=== PATIENT | female | born 1965 | race Caucasian/White ===

== ENCOUNTER → 2018-07-18 10:39 | Outpatient (CLI) | payer BC, SELFPAY ==
--- NOTE | 2018-07-18 10:46 | XR_ITS ---
XR hip LT 2-3V w/pelvis HISTORY: ITS.REASON: OSTEOARTHRITIS OF BOTH HIPS ORDERING PHYSICIAN: GERRY Pugh PATIENT AGE: 52 years COMPARISON: 11/05/2012 FINDINGS: There are severe osteoarthritic changes of the left hip with loss of joint space and prominent subarticular cystic changes of the femoral head along with osteophyte formation of the femoral head and neck. 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 No fracture or dislocation. IMPRESSION: Worsening severe osteoarthritis of the left hip with acetabular protrusio and prominent subarticular cystic changes and osteophyte formation
--- NOTE | 2018-07-18 10:46 | XR_ITS ---
XR hip RT 2-3V w/pelvis HISTORY: ITS.REASON: OSTEOARTHRITIS OF BOTH HIPS ORDERING PHYSICIAN: GERRY Pugh PATIENT AGE: 52 years COMPARISON: 11/05/2012 FINDINGS: There is severe osteoarthritis of the right hip with mild acetabular protrusio and prominent subcortical cystic changes of the femoral head. Prominent osteophytes are present along the femoral head as well. No fracture or dislocation. IMPRESSION: Severe osteoarthritis of the right hip with subcortical cystic change and osteophyte formation with mild acetabular protrusio. These findings have slightly worsened compared to the previous exam
== END ==
PROVIDERS: PCP Family Medicine; Visit Provider Physician Assistant
DX: M16.0 Bilateral primary osteoarthritis of hip (principal)
CPT/HCPCS: 73502

== ENCOUNTER → 2018-07-19 08:22 | Outpatient (CLI) | payer BC, SELFPAY ==
[2018-07-19 10:19] LABS: Alanine Aminotransferase 21 U/L (12-78); Albumin Level 3.3 gm/dL (3.4-5.0); Alkaline Phosphatase 82 U/L (46-116); Anion Gap 12.5 mEq/L (5-15); Aspartate Amino Transferase 14 U/L (15-37); Bilirubin,Total 0.4 mg/dL (0.2-1.0); Blood Urea Nitrogen 16 mg/dL (7-18); Calcium 8.6 mg/dL (8.5-10.1); Carbon Dioxide 27 mmol/L (21.0-32.0); Chloride 105 mmol/L (98-107); Chol/HDL Ratio 4.1 (1-3.5); Cholesterol 183 mg/dL (140-200); Creatinine,Serum 0.64 mg/dL (0.55-1.02); Estimated Glomerular Filt Rate 98 ml/min (>60); GFR (African American) 118 ML/MIN (>60); Globulin 3.3 gm/dl (1.3-3.2); Glucose 90 mg/dL (74-106); HDL Cholesterol 45 mg/dL (29-89); LDL Cholesterol 125 mg/dL (0-130); Potassium 4.5 mmoL/L (3.5-5.1); Sodium 140 mmol/L (136-145); Total Protein,Serum 6.6 gm/dL (6.4-8.2); Triglycerides 64 mg/dL (30-200); VLDL Cholesterol 13 mg/dL (0-40)
[2018-07-20 12:59] LABS: Vitamin B12 >2000 pg/mL (232-1245)
== END ==
PROVIDERS: Visit Provider Physician Assistant
DX: M16.0 Bilateral primary osteoarthritis of hip (principal); E53.8 Deficiency of other specified B group vitamins; E55.9 Vitamin D deficiency, unspecified; Z13.29 Encounter for screening for other suspected endocrine disorder; Z13.220 Encounter for screening for lipoid disorders
CPT/HCPCS: 36415; 80053; 80061; 82607; 82652; 84443

== ENCOUNTER → 2018-09-05 06:28 | Outpatient (CLI) | payer BC, SELFPAY ==
--- NOTE | 2018-09-05 06:34 | CA_ITS ---
PROCEDURE: 2-D M-mode and color Doppler study INDICATIONS FOR THE TEST: Chest pain X COPD Heart Murmur Tobacco SmokingX Palpitations Fatigue Syncope Edema HypertensionXDiabetes Mellitus Rheumatic Fever SOBXDOE Obesity HyperlipidemiaX Family History HD Additional History PRE OP HIP REPLACEMENT PATIENT INFORMATION HEIGHT: 62 WEIGHT:155 GENDER: Female B/P:144/86 2-D/M-MODE INTERPRETATION: 2-D MEASUREMENTS OBSERVED VALUES IN CMS Right Ventricular Dimension (RVDd) 2.3 Interventricular Septum (Thickness)(IVsd) .9 Left Ventricular Internal Dimensions(LVIDd) 4.8 Left Ventricular Posterior Wall (Thickness)(LVPWd) 1.1 Aortic Root 2.8 Aortic Cusp Separation 1.5 Left Atrial Dimensions (LAD) 2.9 2D 1. Left atrium is normal size, left ventricle is normal size, there is no concentric left ventricular hypertrophy, visually estimated ejection fraction 55% with no regional wall motion abnormality. 2. The right atrium and right ventricle are normal size and contractility. 3. The aortic valve, mitral and tricuspid valvular grossly normal. 4. The pulmonic valve is poorly visualized. 5. No significant pericardial effusion noted. DOPPLER INTERROGATION: Doppler interrogation of the aortic, mitral and tricuspid valvular presence of mild mitral and tricuspid regurgitation, tricuspid regurgitation jet velocity is inadequate for calculation of the right ventricular systolic pressure, diastolic parameters are within normal range. CONCLUSION: 1. Normal left ventricular size, preserved left ventricular systolic function, visually estimated ejection fraction 55% with no regional wall motion abnormality, diastolic parameters are within normal range. 2. Mild mitral and tricuspid regurgitation 3. No significant pericardial effusion noted.
--- NOTE | 2018-09-05 07:11 | NM_ITS ---
CARDIOLITE SPECT MYOCARDIAL PERFUSION LEXISCAN, REST AND STRESS: History: Tobacco use, family history, chest pain, palpitations and fatigue Procedure: Patient received a 0.4 mg of intravenous Lexiscan, resting heart rate of 55% resting blood pressure 161/87, with Lexiscan maximum heart rate achieved was 100 bpm which is less than 85% of the maximum] heart rate and a blood pressure was 145/90. With Lexiscan patient complained shortness of breath. Electrocardiogram: Resting electrocardiogram showed sinus bradycardia, with Lexiscan less than 1.[address] segment depression noted from the baseline EKG. The EKG portion of the Lexiscan Myoview is nondiagnostic. Cardiac stress and resting SPECT images: Cardiac stress and resting SPECT images were obtained using technetium 99 Myoview 32.2 mCi at stress and 9.8 mCi at rest. Gated SPECT further analysis of segmental wall motion and calculation of the ejection fraction also done. Cardiac stress and resting SPECT images show reversible ischemia involving the anteroapical apex. Computer derived ejection fraction 61% with no regional wall motion abnormality, right ventricle is normal size and contractility. Conclusion: 1. The EKG portion of the Lexiscan Myoview is nondiagnostic. 2. Scintigraphic evidence of reversible ischemia involving the anteroapical and apical wall. Computer derived ejection fraction is 61% with no regional wall motion abnormality, right ventricle is normal size and contractility. 3. Abnormal Lexiscan Myoview study.
--- NOTE | 2018-09-05 07:11 | CT_ITS ---
CT chest wo con HISTORY: Current smoker, ITS.REASON: x ORDERING PHYSICIAN: Praneeth Otto MD PATIENT AGE: 52 years COMPARISON: None Technique: Axial images obtained without contrast. Sagittal, and coronal reformatted images are also generated and reviewed. All CT scans at the facility use one or more dose reduction, viz: automated exposure control, ma/kV adjustment per patient size (including targeted exams where dose is matched to indication, i.e. head), or iterative reconstruction technique. FINDINGS: No mediastinal or hilar mass or adenopathy. There are a few small mediastinal lymph nodes some of which are calcified. There are coronary artery calcifications. Normal heart size. No evidence of pericardial effusion. Calcified granuloma is present in the right apex. There is mild hyperinflation with attenuation of the peripheral pulmonary vessels consistent with COPD. There is a noncalcified 4 mm nodule in the right lower lobe posteriorly series 3 image 45. There is a 3 mm ill-defined nodular opacity in the left upper lobe inferiorly series 3 image #53. There is some mild bronchial thickening. No central obstructing lesions. No effusions or infiltrates. No acute bony findings. Upper abdominal images are unremarkable. IMPRESSION: 1. There are at least 2 noncalcified pulmonary nodules which are 3 to 4 mm. 12 month follow-up recommended. 2. COPD. 3. Old granulomatous disease. 4. Coronary artery calcification
--- NOTE | 2018-09-05 08:43 | HMH.ITSHM ---
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 [] meloxicam asa
== END ==
PROVIDERS: PCP Family Medicine; Visit Provider Internal Medicine Cardiovascular Disease
DX: Z01.818 Encounter for other preprocedural examination (principal); R06.02 Shortness of breath; R07.9 Chest pain, unspecified; I10 Essential (primary) hypertension; E78.5 Hyperlipidemia, unspecified; I65.29 Occlusion and stenosis of unspecified carotid artery; Z72.0 Tobacco use; Z82.49 Family history of ischemic heart disease and other diseases of the circulatory system
CPT/HCPCS: 71250; 78452; 93017; 93306; A9502; J2785

== ENCOUNTER → 2019-02-26 07:45 | Outpatient (CLI) | payer BC, SELFPAY ==
[2019-02-26 08:54] LABS: Alanine Aminotransferase 23 U/L (12-78); Albumin Level 3.4 gm/dL (3.4-5.0); Alkaline Phosphatase 108 U/L (46-116); Aspartate Amino Transferase 14 U/L (15-37); Bilirubin,Direct 0.1 mg/dL (0.0-0.2); Bilirubin,Indirect 0.5 mg/dL (0.0-0.9); Bilirubin,Total 0.6 mg/dL (0.2-1.0); Chol/HDL Ratio 2.5 (1-3.5); Cholesterol 115 mg/dL (140-200); HDL Cholesterol 46 mg/dL (29-89); LDL Cholesterol 59 mg/dL (0-130); Total Protein,Serum 6.8 gm/dL (6.4-8.2); Triglycerides 51 mg/dL (30-200); VLDL Cholesterol 10 mg/dL (0-40)
== END ==
PROVIDERS: Visit Provider Internal Medicine Cardiovascular Disease
DX: E78.5 Hyperlipidemia, unspecified (principal); I10 Essential (primary) hypertension; I25.10 Atherosclerotic heart disease of native coronary artery without angina pectoris; I65.29 Occlusion and stenosis of unspecified carotid artery; R91.8 Other nonspecific abnormal finding of lung field; Z72.0 Tobacco use
CPT/HCPCS: 36415; 80061; 80076

== ENCOUNTER 2019-08-01 10:00 | Outpatient (RCR) | payer BC, SELFPAY | END 2019-08-01 10:05 | disposition home or self-care (01) | LOC: PT 10:00 | PROVIDERS: PCP Family Medicine; Visit Provider Orthopaedic Surgery | DX: Z96.642 Presence of left artificial hip joint (principal); M16.12 Unilateral primary osteoarthritis, left hip | CPT/HCPCS: 97010; 97014; 97110; 97116; 97163; G0283 ==

== ENCOUNTER 2020-02-25 13:00 | Outpatient (RCR) | payer BC, SELFPAY | END 2020-02-25 13:05 | disposition home or self-care (01) | LOC: PT 13:00 | PROVIDERS: PCP Family Medicine; Visit Provider Orthopaedic Surgery | DX: M25.551 Pain in right hip; Z96.641 Presence of right artificial hip joint | CPT/HCPCS: 97110; 97163 ==

== ENCOUNTER → 2020-08-24 09:17 | Outpatient (CLI) | payer BC, SELFPAY ==
[2020-08-24 10:34] LABS: Alanine Aminotransferase 18 U/L (12-78); Alkaline Phosphatase 110 U/L (38-126); Aspartate Amino Transferase 25 U/L (14-36); Bilirubin,Direct 0.1 mg/dl (0.0-0.4); Bilirubin,Indirect 0.5 mg/dL (0.0-0.9); Bilirubin,Total 0.6 mg/dl (0.2-1.3); Bilirubin,Unconjugated 0.5 mg/dL (0.0-1.1); Cholesterol 114 mg/dl (140-200); HDL Cholesterol 56 mg/dl (40-60); Total Protein,Serum 7.2 g/dl (6.3-8.2); Triglycerides 73 mg/dl (30-150); VLDL Cholesterol 15 mg/dL (0-40)
== END ==
PROVIDERS: Visit Provider Urology
DX: E78.5 Hyperlipidemia, unspecified (principal); I10 Essential (primary) hypertension; I25.10 Atherosclerotic heart disease of native coronary artery without angina pectoris; I65.29 Occlusion and stenosis of unspecified carotid artery
CPT/HCPCS: 36415; 80061; 80076

== ENCOUNTER → 2020-08-27 09:42 | Outpatient (CLI) | payer BC, SELFPAY ==
--- NOTE | 2020-08-27 09:46 | CA_ITS ---
APPROVED REPORT Voltage Regulator Assembler: UZAIR Laterality: Bilateral Indications: ariel/dizziness Risk Factors Hypertension: History smoking quit 2 years ago. Doppler Spectral Velocity Analysis ECA (R) 90.80/24.00 cm/s ECA (L) 96.20/20.30 cm/s dICA (R) 97.30/37.40 cm/s dICA (L) 123.00/47.00 cm/s Ryan (R) 121.90/48.10 cm/s Ryan (L) 121.90/39.60 cm/s pICA (R) 113.30/46.00 cm/s pICA (L) 120.80/29.90 cm/s dCCA (R) 93.40/35.10 cm/s dCCA (L) 101.60/36.40 cm/s pCCA (R) 123.40/30.80 cm/s pCCA (L) 116.60/35.30 cm/s Vert (R) 65.20/20.30 cm/s Vert (L) 62.00/21.40 cm/s ICA/CCA 0.77 ICA/CCA 1.21 Findings Duplex evaluation demonstrates stenosis of the right proximal internal carotid artery in the range of 20-49% with PSV <140 cm/sec, EDV <100 cm/sec, and IC/CC Ratio <4.0, no change from study 12/2016. Duplex evaluation demonstrates stenosis of the left proximal internal carotid artery in the range of 20-49% with PSV <140 cm/sec, EDV <100 cm/sec, and IC/CC Ratio <4.0, no change from study 12/2016. Conclusion Duplex evaluation demonstrates stenosis of the right proximal internal carotid artery in the range of 20-49% with PSV <140 cm/sec, EDV <100 cm/sec, and IC/CC Ratio <4.0, no change from study 12/2016. Duplex evaluation demonstrates stenosis of the left proximal internal carotid artery in the range of 20-49% with PSV <140 cm/sec, EDV <100 cm/sec, and IC/CC Ratio <4.0, no change from study 12/2016. Electronically signed by : Darryl Price MD 08/27/2020 16:16:15
== END ==
PROVIDERS: PCP Family Medicine; Visit Provider Urology
DX: R42 Dizziness and giddiness (principal); I25.10 Atherosclerotic heart disease of native coronary artery without angina pectoris; I65.23 Occlusion and stenosis of bilateral carotid arteries; E78.5 Hyperlipidemia, unspecified; I10 Essential (primary) hypertension
CPT/HCPCS: 93880

== ENCOUNTER → 2021-04-25 11:21 | Outpatient (CLI) | payer BC, SELFPAY ==
--- NOTE | 2021-04-25 11:27 | XR_ITS ---
PROCEDURE: XR CHEST PORTABLE CLINICAL HISTORY: COVID TESTING, COMPARISON: CR CXR CHEST(2 VIEWS-NOT PORTABLE) from 08/12/[address] chest wo con from 09/05/2018 FINDINGS: The cardiomediastinal silhouette and pulmonary vascularity are within normal limits. The lungs are clear without infiltrates, suspicious nodules, or pleural effusions. No acute bony abnormalities. IMPRESSION: No acute findings. Dictated by: Darryl Price MD 04/25/2021 12:34 Darryl Price MD in [place] 04/25/2021 12:34
[2021-04-25 11:47] LABS: Basophils # 0.1 K/mm3 (0-0.2); Basophils % 1.4 % (0.1-2.0); Eosinophils # 0.1 K/mm3 (0.0-0.4); Eosinophils % 1.1 % (0.1-12.0); Hemoglobin 15.1 g/dL (12.2-16.2); Lymphocytes % 24.3 % (10-50); Mean Corpuscular HGB Conc 32.8 g/dL (31.8-35.4); Mean Corpuscular Hemoglobin 29.8 pg (27.0-31.2); Mean Corpuscular Volume 90.9 fl (81-99); Mean Platelet Volume 8.4 fl (7.4-10.4); Monocytes # 0.3 K/mm3 (0.1-1.0); Monocytes % 5.8 % (1.7-9.3); Neutrophils # 2.9 K/mm3 (1.8-7.8); Neutrophils % 67.4 % (37.0-80.0); Platelet Count 200 K/mm3 (142-424); Red Blood Count 5.06 M/mm3 (4.20-5.40); Red Cell Distribution Width 14.4 % (11.5-17.5); White Blood Count 4.3 K/mm3 (4.8-10.8)
== END ==
PROVIDERS: PCP Family Medicine; Visit Provider Family Medicine
DX: J40 Bronchitis, not specified as acute or chronic (principal)
CPT/HCPCS: 36415; 71045; 85025

== ENCOUNTER → 2021-04-28 11:47 | Outpatient (CLI) | payer BC, SELFPAY ==
[2021-04-28 12:26] LABS: Adenovirus,PCR Not Detected (NotDetected); Bordetella Pertussis Not Detected (NotDetected); Chlamydophila Pneumoniae, PCR Not Detected (NotDetected); Coronavirus 229E Not Detected (NotDetected); Coronavirus NL63 Not Detected (NotDetected); Coronavirus OC43 Not Detected (NotDetected); Coronovirus HKU1,PCR Not Detected (NotDetected); Human Metapneumovirus Not Detected (NotDetected); Influenza A, PCR Not Detected (NotDetected); Influenza AH1, 2009 Not Detected (NotDetected); Influenza AH1, PCR Not Detected (NotDetected); Influenza AH3,PCR Not Detected (NotDetected); Influenza B, PCR Not Detected (NotDetected); Mycoplasma Pneumoniae, PCR Not Detected (NotDetected); Parainfluenza 1, PCR Not Detected (NotDetected); Parainfluenza 2, PCR Not Detected (NotDetected); Parainfluenza 3, PCR Not Detected (NotDetected); Parainfluenza 4, PCR Not Detected (NotDetected); Respiratory Syncytial Virus Not Detected (NotDetected); Rhinovirus/Enterovirus Not Detected (NotDetected)
[2021-04-28 14:25] LABS: Strep Scrn Group A (Rapid) Negative (Negative)
[2021-04-28 15:01] LABS: Coronavirus 19, PCR Detected (NotDetected)
== END ==
PROVIDERS: PCP Family Medicine; Visit Provider Physician Assistant
DX: Z20.822 Contact with and (suspected) exposure to COVID-19 (principal); U07.1 COVID-19
CPT/HCPCS: 87430; 87581; 87632; 87798; C9803; U0003; U0005

== ENCOUNTER 2021-04-30 07:59 | Outpatient (CLI) | payer BC, SELFPAY ==
[2021-04-30] VITALS (7 sets, daily range): BP systolic 128–157; BP diastolic 77–98; PULSE 73–77; RESP 18–20; TEMP 36.8–36.9; O2SAT 97–100
== END 2021-04-30 10:02 | disposition home or self-care (01) ==
PROVIDERS: PCP Family Medicine; Visit Provider Physician Assistant
DX: U07.1 COVID-19 (principal); Z23 Encounter for immunization
CPT/HCPCS: 96365

== ENCOUNTER → 2021-09-23 12:36 | Outpatient (CLI) | payer BC, SELFPAY ==
--- NOTE | 2021-09-23 12:37 | CA_ITS ---
FINAL REPORT TECHNIQUE: Color Doppler, duplex Doppler and schneider scale sonography of the bilateral neck arterial vasculature was performed. Velocities were measured in the carotid arteries. Stenosis evaluation based on the validated velocity criteria. CLINICAL HISTORY: ZONIA,HTN,EX SMOKER FINDINGS: The peak systolic velocity of the right common carotid artery is 92 cm/s. The peak systolic velocity of the right internal carotid artery is 103 cm/s and end diastolic velocity 47 cm/s. The ICA/CCA ratio is 1.2. A mild amount of plaque is present. The right external carotid artery is patent. The right vertebral artery is patent with antegrade flow. The peak systolic velocity of the left common carotid artery is 102 cm/s. The peak systolic velocity of the left internal carotid artery is 103 cm/s and end diastolic velocity 34 cm/s. The ICA/CCA ratio is 1.32. A mild amount of plaque is present. The left external carotid artery is patent.The left vertebral artery is patent with antegrade flow. IMPRESSION: Less than 50% bilateral carotid stenosis. Bilateral patent vertebral arteries with antegrade flow. Reviewed, Interpreted and Dictated by Epifanio Eubanks III, MD Transcribed by Nanci Paul Authenticated by Epifanio Eubanks III, MD on 09/23/2021 01:46:[address] [facility]
== END ==
PROVIDERS: PCP Family Medicine; Visit Provider Nurse Practitioner Family
DX: I65.23 Occlusion and stenosis of bilateral carotid arteries (principal); I25.10 Atherosclerotic heart disease of native coronary artery without angina pectoris; I10 Essential (primary) hypertension; E78.5 Hyperlipidemia, unspecified
CPT/HCPCS: 93880

== ENCOUNTER → 2022-09-16 08:13 | Outpatient (CLI) | payer BC, SELFPAY ==
[2022-09-16 09:26] LABS: Chloride 105 mmol/L (98-107); Potassium 4.3 mmoL/L (3.5-5.1); Sodium 140 mmol/L (136-145)
[2022-09-16 09:27] LABS: Alanine Aminotransferase 29 U/L (12-78); Alkaline Phosphatase 117 U/L (38-126); Aspartate Amino Transferase 31 U/L (14-36); Bilirubin,Indirect 0.5 mg/dL (0.0-0.9); Bilirubin,Total 0.5 mg/dl (0.2-1.3); Bilirubin,Unconjugated 0.5 mg/dL (0.0-1.1)
[2022-09-16 09:28] LABS: Chol/HDL Ratio 2.4 (1-3.5); Cholesterol 109 mg/dl (140-200); HDL Cholesterol 46 mg/dl (40-60); Triglycerides 63 mg/dl (30-150); VLDL Cholesterol 13 mg/dL (0-40)
[2022-09-16 09:28] LABS: Blood Urea Nitrogen 17 mg/dl (7-17); Estimated Glomerular Filt Rate 87 ml/min (>60); GFR (African American) 105 ML/MIN (>60)
[2022-09-16 09:29] LABS: Alanine Aminotransferase 28 U/L (12-78); Albumin/Globulin Ratio 1.3 (1.1-1.8); Alkaline Phosphatase 122 U/L (38-126); Anion Gap 9.3 mEq/L (5-15); Aspartate Amino Transferase 31 U/L (14-36); Bilirubin,Total 0.5 mg/dl (0.2-1.3); Calcium 8.9 mg/dl (8.4-10.2); Carbon Dioxide 30 mmol/L (22.0-30.0); Glucose 89 mg/dl (74-100)
[2022-09-16 09:39] LABS: Direct LDL Cholesterol 49.76 mg/dL (100-129)
[2022-09-16 14:20] LABS: 25-OH Vitamin D, Total 52.3 ng/mL (30-100)
[2022-09-16 15:33] LABS: Vitamin B12 883 pg/mL (239-931)
== END ==
PROVIDERS: PCP Physician Assistant; Visit Provider Internal Medicine Cardiovascular Disease
DX: I25.118 Atherosclerotic heart disease of native coronary artery with other forms of angina pectoris (principal); R42 Dizziness and giddiness; I10 Essential (primary) hypertension; E78.2 Mixed hyperlipidemia; I65.23 Occlusion and stenosis of bilateral carotid arteries; E66.9 Obesity, unspecified; Z68.35 Body mass index [BMI] 35.0-35.9, adult
CPT/HCPCS: 36415; 80053; 80061; 80076; 82306; 82607

== ENCOUNTER → 2022-10-06 14:12 | Outpatient (CLI) | payer BC, SELFPAY ==
--- NOTE | 2022-10-06 14:21 | MM_ITS ---
PROCEDURE INFORMATION: Exam: Bilateral Screening 3D Mammography Exam date and time: 10/06/2022 2:40 PM Age: 56 years old Clinical indication: Screening mammogram TECHNIQUE: Imaging protocol: Bilateral Screening tomosynthesis and 2D mammography including computer-aided detection (CAD) when performed. COMPARISON: No relevant prior studies available. FINDINGS: MAMMOGRAPHY: Breast composition: There are scattered areas of fibroglandular density. Mass: 0.3 cm mass within the lower outer right middle 1/3 should be further assessed with ultrasound. Architectural distortion: No new or suspicious architectural distortion. Calcifications: No new or suspicious calcifications are present Asymmetric density: No new or suspicious asymmetric density is present Skin thickening: None. Axillary adenopathy: None. IMPRESSION: 0.3 cm mass within the lower outer right middle 1/3 should be further assessed with ultrasound. ASSESSMENT: BI-RADS category 0: Incomplete-need additional imaging evaluation and/or prior mammograms for comparison.
--- NOTE | 2022-10-06 14:21 | CT_ITS ---
FINAL REPORT CLINICAL HISTORY: HISTORY OF TOBACCO, QUIT 3 YRS AGO, SMOKED 1 PK PER DAY X 30 YRS CAD COMPARISON: 09/05/2018 FINDINGS: Low-Dose Chest CT Axial images were obtained from the lung apex to the mid abdomen by computed tomography. Low-dose protocol was utilized. CTDI vol (mGy): 2.90 DLP (mGy-cm): 99.25 There is no axillary adenopathy. There is no hilar or mediastinal adenopathy. The heart is proper size. There is either worsening coronary artery calcification or interval placement of a coronary artery stent. There is no pericardial or pleural effusion. Lung window images demonstrates a calcified granuloma in the right upper lobe. There is mild pulmonary scarring. No new mass or nodule is identified. Limited images of the upper abdomen are unremarkable. IMPRESSION: No suspicious nodule or infiltrate identified. Lung RADS category 1. Recommend 12 month follow-up low-dose chest CT. Reviewed, Interpreted and Dictated by Epifanio Eubanks III, MD Transcribed by Nanci Paul Authenticated and [facility]
== END ==
PROVIDERS: PCP Physician Assistant; Visit Provider Physician Assistant
DX: Z87.891 Personal history of nicotine dependence (principal); Z12.2 Encounter for screening for malignant neoplasm of respiratory organs; Z12.31 Encounter for screening mammogram for malignant neoplasm of breast
CPT/HCPCS: 71271; 77063; 77067

== ENCOUNTER → 2022-10-19 09:32 | Outpatient (CLI) | payer BC, SELFPAY ==
--- NOTE | 2022-10-19 09:43 | US_ITS ---
PROCEDURE INFORMATION: Exam: US Right Breast, Complete Exam date and time: 10/19/2022 9:51 AM Age: 56 years old Clinical indication: Patient recalled for further evaluation of a right breast mass TECHNIQUE: Imaging protocol: Complete ultrasound of all four quadrants of the right breast and the retroareolar regions, including ultrasound of the axilla when performed. COMPARISON: MG MM DIG SCREENING MAMM BI W/CAD 10/06/2022 2:40 PM FINDINGS: Sonographic images of the right 7 o'clock axis 3 cm from the nipple demonstrates a 0.3 cm cyst most closely corresponding to the mass on mammography. Additional right 9 o'clock retroareolar subcutaneous 0.6 cm cyst is noted. No solid masses. No architectural distortion or acoustical shadowing. IMPRESSION: Mass on screening mammography corresponds to underlying cystic change sonographically. There is no mammographic evidence of malignancy.Annual bilateral mammographic screening is recommended unless otherwise clinically indicated. ASSESSMENT: BI-RADS Category 2: Benign
== END ==
LOC: RAD 09:35
PROVIDERS: PCP Physician Assistant; Visit Provider Physician Assistant
DX: R92.8 Other abnormal and inconclusive findings on diagnostic imaging of breast (principal)
CPT/HCPCS: 76641

== ENCOUNTER 2024-08-20 14:45 | Outpatient (CLI) | payer BC, SELFPAY ==
--- NOTE | 2024-08-20 14:48 | MM_ITS ---
PROCEDURE INFORMATION: Exam: MG Bilateral Screening 3D Mammography Exam date and time: 08/20/2024 2:52 PM Age: 58 years old Clinical indication: Screening examination TECHNIQUE: Imaging protocol: Bilateral Screening tomosynthesis and 2D mammography including computer-aided detection (CAD) when performed. COMPARISON: 1. MG MM DIG SCREENING MAMM BI W/CAD 10/06/2022 2:40 PM 2. US BREAST RT COMPLETE 10/19/2022 9:51 AM FINDINGS: MAMMOGRAPHY: Breast composition: There are scattered areas of fibroglandular density. Mass: None. Architectural distortion: None. Calcifications: No suspicious calcifications. Asymmetric density: None. Skin thickening: None. Axillary adenopathy: None. IMPRESSION: No mammographic evidence of malignancy. Annual screening is recommended unless otherwise clinically indicated. ASSESSMENT: BI-RADS Category 1: Negative.
== END 2024-08-20 23:59 | disposition home or self-care (01) ==
LOC: RAD 14:45
PROVIDERS: PCP Family Medicine; Visit Provider Nurse Practitioner Family
DX: Z12.31 Encounter for screening mammogram for malignant neoplasm of breast (principal)
CPT/HCPCS: 77063; 77067

== ENCOUNTER 2024-10-03 09:14 | Outpatient (CLI) | payer BC, SELFPAY ==
--- NOTE | 2024-10-03 09:24 | CT_ITS ---
FINAL REPORT CLINICAL HISTORY: HX OF NICOTINE FORMER SMOKER 5 YEARS AGO 1PPD X47 YEARS COMPARISON: 10/06/2022 FINDINGS: Axial images were obtained from the lung apex to the mid abdomen by computed tomography. Low-dose protocol was utilized. CTDl vol(mGy): 2.90 DLP (mGy-cm): 99.77 FINDINGS: There is no axillary adenopathy. There is no hilar or mediastinal adenopathy. The heart size is normal. There is no pericardial or pleural effusion. Limited images of the upper abdomen are unremarkable. Lung window images demonstrate no suspicious infiltrate or nodule. There is minimal pleural-based scarring at the right lung base. IMPRESSION: Lung RADS category 1. Recommend 12 month follow-up low-dose chest CT. Reviewed, Interpreted and Dictated by Julián Disla MD Transcribed by Rosy Sam Authenticated and [facility]
== END 2024-10-03 23:59 | disposition home or self-care (01) ==
LOC: RAD 09:15
PROVIDERS: PCP Family Medicine; Visit Provider Family Medicine
DX: Z12.2 Encounter for screening for malignant neoplasm of respiratory organs (principal); Z87.891 Personal history of nicotine dependence; J92.9 Pleural plaque without asbestos
CPT/HCPCS: 71271

== ENCOUNTER 2025-02-28 07:19 | Outpatient (CLI) | payer BC, SELFPAY ==
--- OUTSIDE RECORDS SUMMARY | 2024-02-07 06:45 | XMS_ITS ---
[facility] Address [address] [facility] [address] [place] [id number] Care Team Providers Care Plaster Whittler Name Role Phone Ruma Prabhakar Primary Care Provider [phone] LloydOrquidea jimenez Unavailable [phone] Allergies No Known Allergies Results Component Value Reference Range Notes Influenza Screen (in house) Reviewed date:02/07/2024 11:21:19 AM Interpretation: Performing Lab: Notes/Report: results Neg Covid test (in house) Reviewed date:02/07/2024 11:21:10 AM Interpretation: Performing Lab: Notes/Report: Result: Neg REASON FOR VISIT sore throat, chest congestion Medications Medication SIG (Take, Route, Frequency, Duration) Notes Start Date End Date Status Medrol 4 MG as directed orally daily; Duration: 6 days 04/25/2021 Not-Taking Promethazine-DM 6.25-15 MG/5ML 5 ml orally every 6 hours prn 04/25/2021 Not-Taking Zithromax 500 MG 1 tab(s) orally once a day; Duration: 5 days 04/25/2021 Not-Taking Walker DIRECTED *Please review and pick correct strength-formulat ion from [employer] options. If intended option is not shown, discontinue and re-order from Quick Search* 07/25/2019 Not-Taking COMBIVENT INHALER 2 PUFFS QID PRN *Please review for potential replacement for e-prescription and drug interaction check* 04/25/2021 Not-Taking Triamcinolone Acetonide 0.1 % APPLY TO AFFECTED AREA 3 TIMES A DAY; Duration: 30 Not-Taking Brilinta 90 MG 1 tab(s) orally 2 times a day; Duration: 30 day(s) Active Ramipril 5 MG 1 cap(s) orally once a day; Duration: 30 day(s) Active Vitamin D3 50 MCG (2000 UT) 1 cap(s) orally once a day 08/17/2016 Active B-12 1000 MCG 1 tab(s) orally once a day 08/17/2016 Active Aspirin Adult Low Dose 81 MG 1 tab(s) orally once a day; Duration: 30 day(s) Active Atorvastatin Calcium 40 MG 1 tab(s) orally once a day; Duration: 30 day(s) Active Cefdinir 300 MG 1 cap(s) Orally Two times a day; Duration: 10 day(s) 02/07/2024 Active Vital Signs Blood pressure systolic 112 mm Hg 02/07/20 24 Blood pressure diastolic 80 mm Hg 024 Heart Rate 75 /min 02/07/2024 Height 63.50 in 02/07/2024 Weight 202.2 lbs 02/07/2024 BMI 35.25 kg/m2 02/07/2024 Encounters Encounter Location Date Provider Diagnosis [facility] [address] [place] [id number] 02/07/2024 Orquidea Shah Acute URI J06.9 and Acute otitis media, left H66.92 Assessments Encounter Date Diagnosis (ICD Code) Assessment Notes Treatment Notes Treatment Clinical Notes Section Notes 02/07/2024 Acute URI (ICD-10 - J06.9) 02/07/2024 Acute otitis media, left (ICD-10 - H66.92) Plan Of Treatment Medication Medication Name Sig Start Date Stop Date Notes Cefdinir 300 MG 1 cap(s) Orally Two times a day; Duration: 10 day(s) 02/07/2024 Next Appt Details Follow Up: prn, Reason: Progress Notes * Martha GLOVERKaitlinB:1965 (59 yo F)Acc No.[id number]:02/07/2024 Progress Notes Patient: Maru BARBOZA Provider: GERRY Araujo :1965 A ge:58 Y S ex:Female Date:02/07/2024 Address:[address] [place] [address] [id number] Pcp:Ruma Prabhakar Subjective: * Chief Complaints: * 1 . Sore throat, chest congestion. * HPI: E NT/respiratory: The patient is here today with c/o cough, sore throat and congestion. Pt states this started on Sunday. 58 year old female presents with c/o sore throat. c/o cough. c/o rhinorrhea. c/o chest congestion. Denies : Fever. D enies : Chest Pain. D enies : Short of Breath. * ROS: D ERMATOLOGY: no R rachael. n o H tahir. G ASTROENTEROLOGY: no N ausea. n o V omiting. n o D iarrhea.? U ROLOGY: no D ifficulty urinating. n o B lood in urine. * Medical History: M edical History Verified. * Surgical History: i nfection of lymph node 1986, tubal ligation 1991, D&C, Hysteroscopy, Ablation 12/23/12, Heart Cath 09/27/18, left hip replacement 07/2019. * Hospitalization/Major Diagno stic Procedure: v aginal 3 children , [facility] D&C 12/23/12. * Family History: F ather: , brain aneurysm, hypertension, diabetes. M other: , COPD. S iblings: 7 sibs, one brother with brain tumor. 5 brother(s) , 3 sister(s) - healthy. 2 son(s) , 1 daughter(s) . . * Social History: C URRENT TOBACCO USE S moking Status: Patient does smoke, packs per day: 1, Smoking preference: cigarettes. C affeine: yes, frequency: Mt Dew. Home smoke detector use: yes. Past smoking status: Smoking status: Patient does smoke, Packs per day: 1, Number Cigarettes per day: 20, Since age of: 17, Smoking preference: cigarettes. Alcohol: No. * Medications: T aking Vitamin D3 50 MCG (2000 UT) Capsule 1 cap(s) orally once a day , Taking B- 12 1000 MCG Tablet 1 tab(s) orally once a day , Taking Aspirin Adult Low Dose 81 MG Tablet Delayed Release 1 tab(s) orally once a day , Taking Atorvastatin Calcium 40 MG Tablet 1 tab(s) orally once a day , Taking Ramipril 5 MG Capsule 1 cap(s) orally once a day , Taking Brilinta 90 MG Tablet 1 tab(s) orally 2 times a day , Not-Taking Triamcinolone Acetonide 0.1 % Cream APPLY TO AFFECTED AREA 3 TIMES A DAY , Not- Taking Walker DIRECTED , Notes to Pharmacist: *Please review and pick correct strength-formulation from [employer] options. If intended option is not shown, discontinue and re-order from Quick Search*, Not-Taking COMBIVENT INHALER 2 PUFFS QID PRN , Notes to Pharmacist: *Please review for potential replacement for e-prescription and drug interaction check*, Not-Taking Medrol 4 MG Tablet Therapy Pack as directed orally daily , Not-Taking Promethazine-DM 6.25-15 MG/5ML Syrup 5 ml orally every 6 hours prn , Not-Taking Zithromax 500 MG Tablet 1 tab(s) orally once a day , Discontinued Zithromax Z-Adan 250 MG Tablet 2 pills first day then one daily for 4 days orally as directed , Discontinued Medrol 4 MG Tablet Therapy Pack as directed orally , Medication List reviewed and reconciled with the patient * Allergies: N .K.D.A. Objective: * Vitals: W t:202.2, Temp:97.7, BP:112/80, HR:75, Nurse:COLETTE, Ht: 63.50, BMI:35.25. * Examination: E NT/Respiratory: General Appearance: N AD. E ars: left TM erythematous, right TM pink. N ose : turbinates red, congested. S inuses : tender maxillary sinuses bilaterally. O ral cavity : erythema without exudate on pharynx, PND present. Neck : n o cervical lymphadenopathy. H eart : R RR, normal S1 S2, no murmurs. L ungs: c lear to auscultation bilaterally. Assessment: * Assessment: 1. A cute URI - J06.9 (Primary) 2 . A cute otitis media, left - H66.92 Plan: * Treatment: Value Reference Range r esults Neg * Lou Ibanez 02/07/2024 11: 13:50 AM > , Provider reviewed results while patient in office.Orquidea Shah 02/07/2024 11:21:15 AM > ?LAB: Covid test (in house) (Collection Date & Time - 02/07/2024)* Value Reference Range R esult: Neg * Lou Iabnez 02/07/2024 11: 13:17 AM > , Provider reviewed results while patient in office.Orquidea Shah 02/07/2024 11:21:05 AM > 2.?Acute otitis media, left? Start Cefdinir Capsule, 300 MG, 1 cap(s), Orally, Two times a day, 10 day(s), 20 Capsule, Refills 0.?? * Procedure Codes: 8 7804 Flu Test- Nasal Swab, Modifiers: QW , 72375 COVID TEST IN HOUSE, Modifiers: QW * Follow Up: p rn * Images: Billing Information: * Visit Code: 47206 Office Visit, Est Pt., Level 3. * Procedure Codes: 84314 Flu Test- Nasal Swab. Modifiers: QW 46718 COVID TEST IN HOUSE. Modifiers: QW * Electronic signature of GERRY Conte on 02/28/2025 at 07:23 AM EDT Sign off status: Pending * Provider: GERRY Araujo Date: 0 02/07/2024 Generated for Printi ng/Faclotildeg/eTransmitting on: 0 02/28/2025 07:23 AM EDT History and Physical Notes * HPI (History of Present Illness) Category Sub-Category Detail Notes Category Not es ENT/respiratory sore throat Short of Breath Chest Pain cough Fever chest congestion rhinorrhea Examination Category Sub-Category Detail Notes Category Not es ENT/Respiratory Oral cavity : erythema without exudate on pharynx, PND present Sinuses : tender maxillary sin uses bilaterally Ears: left TM erythematous , right TM pink Neck : no cervical lymphade nopathy Heart : RRR, normal S1 S2, n o murmurs Lungs: clear to auscultatio n bilaterally General Appearance: NAD Nose : turbinates red, maria antonia ested
--- OUTSIDE RECORDS SUMMARY | 2024-08-12 07:15 | XMS_ITS ---
[facility] [address] [facility] [address] [place] [id number] Care Team Providers Care Puddler Pile Driving Name Role Phone Ruma Prabhakar Primary Care Provider Latisha Lloyd Unavailable [phone] Allergies No Known Allergies Results Component Value Reference Range Notes CBC Venipuncture (in house) Reviewed date:08/18/2024 09:59:24 AM Interpretation:Normal Performing Lab: Notes/Report: Normal wbc 7.6 3.5 - 10 lymph 24.8 15 - 50 mid 5.6 2 - 15 gran 69.6 35 - 80 rbc 4.98 3.5 - 5.5 hgb 14.2 11.5 - 16.5 hct 43.5 35 - 55 mcv 87.4 75 - 100 mch 28.5 25 - 35 mchc 32.6 31 - 38 platlet 238 100 - 400 HPV High Risk Screen (TMA) Reviewed date:08/18/2024 10:01:04 AM Interpretation:Negative Performing Lab: Notes/Report: HPV High Risk NOT DETECTED The human papillomavirus (HPV) High Risk Screen is an FDA-approved in-vitro amplified nucleic acid test for the qualitative detection of E6/E7 viral mRNA. Results should be correlated with patient presentation, history, cervical cytology and other clinical and laboratory findings. See [email or web address] /[email or web address]/[email or web address] d f for further information. Test performed by [facility], [address] [place] [address] , [address], [place] [address], Lincoln Wylie DO, Manager User Interface, CLIA# [id number] P-Pap Test Thin Prep Reviewed date:08/18/2024 09:59:47 AM Interpretation:Negative Performing Lab: Notes/Report: Pap Test Thin Prep Negative for Intraepithelial Lesion or Malignancy Source: Vaginal/Cervical/Endoce rvical LMP: 2020 Date Taken: 08/12/2024 Specimen Type: ThinPrep Vial Date Reported: 08/14/2024 Clinical Data: Dysplasia 30 years ago Last Pap: Normal (unknown) Cytotech: HERBERTH Fan(ASCP) Date Reported: 08/14/2024 Specimen Adequacy: Satisfactory for evaluation Endocervical/transforma tion zone component present General Categorization: NEGATIVE FOR INTRAEPITHELIAL LESION OR MALIGNANCY The following tests have been ordered as requested and a separate report will be issued: HPV High Risk Screen (TMA) This specimen has been analyzed by the ThinPrep Imaging System, an interactive computer system which assists the lab in the screening of ThinPrep Pap Test slides. Following imaging, the slide was reviewed by a Smooth Stucco Resurfacer and/or Pathologist. Cervical cytology is a screening test primarily for squamous cancers and precursors and has associated false-negative and false-positive results. New technologies such as liquid-based preparations may decrease but will not eliminate all false-negative results. Regular sampling and follow-up of unexplained clinical signs and symptoms are recommended to minimize false negative results. End of Report Technical services provided by [facility] [place] [facility], d/b/a [address] , [place] [address] Venu Raza MD, Manager User Interface. Case reviewed and diagnosis rendered at [facility] [place] [facility], d/b/a [address] , [place] [address] Venu Raza MD, Manager User Interface. CONFIDENTIAL P-Comprehensive Metabolic Pa real (CMP) Reviewed date:08/18/2024 10:00:11 AM Interpretation:alk phos 137 Performing Lab: Notes/Report: Test performed by [facility] [address] , [address], [place] [address] Wilbert Caraballo MD, Manager User Interface CLIA: [id number] Sodium 143 135-145 mmol/L Potassium 4.3 3.5-5.3 mmol/L Chloride 104 97-108 mmol/L CO2 27 22-32 mmol/L Glucose 83 65-99 mg/dL BUN 17 6-20 mg/dL Creatinine 0.79 0.50-1.00 mg/dL Calcium 9.6 8.6-10.4 mg/dL eGFR by Creatinine 87 >59 mL/min/1.73m2 Protein 7.3 6.0-8.3 g/dL Albumin 4.3 3.5-5.3 g/dL Alkaline Phosphatase 137 35-121 IU/L ALT (SGPT) 17 <5-47 IU/L AST (SGOT) 18 <5-40 IU/L Bilirubin, Total 0.6 <0.2-1.2 mg/dL A/G Ratio 1.4 1.1-2.5 P-Lipid Panel Reviewed date:08/18/2024 10:00:40 AM Interpretation:Normal Performing Lab: Notes/Report: Test performed by [facility], [address] , [address], [place] [address] Wilbert Caraballo MD, Manager User Interface CLIA: [id number] Cholesterol 124 <200 mg/dL Triglycerides 81 <150 mg/dL HDL Cholesterol 47 >39 mg/dL Cholesterol / HDL Ratio 2.64 0.00-4.44 Ratio Non-HDL Cholesterol 77 <130 mg/dL LDL Cholesterol (Calculation) 61 <130 mg/dL LDL Cholesterol Levels* Less than 100 mg/dL Optimal 100 to 129 mg/dL Near Optimal/ Above Optimal 130 to 159 mg/dL Borderline High 160 to 189 mg/dL High 190 mg/dL and above Very High * Categories as recommended by the 2004 ATPIII guidelines LDL/HDL Ratio 1.3 <3.3 Ratio ____ LDL Cholesterol Patient History ____ Test Date: 08/12/2024 LDL Results: 61 Units: mg/dL % Change: - ____ P-TSH Reviewed date:08/18/2024 10:00:31 AM Interpretation:Normal Performing Lab: Notes/Report: Test performed by [facility] [address] [place] [address] , [address], [place] [address] Wilbert Caraballo MD, Manager User Interface CLIA: [id number] TSH 1.20 0.43-5.25 mU/L Mammogram Reviewed date:08/25/2024 09:17:46 AM Interpretation:Negative Performing Lab: Notes/Report: Negative CT SCAN : CHEST, LUNG CANCER SCREENING LOW DOSE Reviewed date:12/16/2024 03:32:16 PM Interpretation:Negative Performing Lab: Notes/Report: Negative REASON FOR VISIT blood work and papsmear, Needs labs, mammogram, low dose chest CT, & shingles vaccine Medications Medication SIG (Take, Route, Frequency, Duration) Notes Start Date End Date Status Aspirin Adult Low Dose 81 MG 1 tab(s) orally once a day Active Promethazine-DM 6.25-15 MG/5ML 5 ml orally every 6 hours prn 04/25/2021 Not-Taking Medrol 4 MG as directed orally daily; Duration: 6 days 04/25/2021 Not-Taking Zithromax 500 MG 1 tab(s) orally once a day; Duration: 5 days 04/25/2021 Not-Taking COMBIVENT INHALER 2 PUFFS QID PRN *Please review for potential replacement for e-prescription and drug interaction check* 04/25/2021 Not-Taking B-12 1000 MCG 1 tab(s) orally once a day 08/17/2016 Not-Taking Vitamin D3 50 MCG (2000 UT) 1 cap(s) orally once a day 08/17/2016 Active Triamcinolone Acetonide 0.1 % APPLY TO AFFECTED AREA 3 TIMES A DAY; Duration: 30 Not-Taking Walker DIRECTED *Please review and pick correct strength-formulat ion from [employer] options. If intended option is not shown, discontinue and re-order from Quick Search* 07/25/2019 Not-Taking Ramipril 5 MG 1 cap(s) orally once a day Active Vitamin C 1000 MG 1 tablet Orally Once a day; Duration: 30 day(s) Active Atorvastatin Calcium 40 MG 1 tab(s) orally once a day Active Calcium 600 MG 1 tablet with meals Orally Once a day Active Plavix 75 MG 1 tablet Orally Once a day; Duration: 30 day(s) 08/12/2024 Active Immunizations Vaccine Route Administration Date Status Comme nts Shingrix IM Intramuscular 08/12/2024 Administered Problems Problem Type SNOMED Code ICD Code Onset Dates Problem Status W/U Status Risk Notes Problem Hypertension (59035607) HTN (hypertens ion) (I10) Active confirmed Vital Signs Blood pressure systolic 120 mm Hg 08/12/19 25 Blood pressure diastolic 74 mm Hg 025 Heart Rate 82 /min 08/12/2024 Height 63.50 in 08/12/2024 Weight 200.4 lbs 08/12/2024 BMI 34.94 kg/m2 08/12/2024 Encounters Encounter Location Date [facility] [address] [place] [id number] 08/12/2024 Latisha Lloyd S/P angioplasty with stent Z95.820 ; Hyperlipidemia, unspecified E78.5 ; 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 I25.10 ; Screening for thyroid disorder Z13.29 ; History of tobacco use disorder Z87.891 ; Screening mammogram, encounter for Z12.31 ; Encounter for vaccination Z23 ; Cervical cancer screening Z12.4 and HTN (hypertension) I10 Assessments Encounter Date Diagnosis (ICD Code) Assessment Notes Treatment Notes Treatment Clinical Notes Section Notes 08/12/2024 S/P angioplasty with stent (ICD-10 - Z95.820) 08/12/2024 Hyperlipidemia, unspecified (ICD-10 - E78.5) 08/12/2024 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 (ICD-10 - I25.10) 08/12/2024 Screening for thyroid disorder (ICD-10 - Z13.29) 08/12/2024 History of tobacco use disorder (ICD-10 - Z87.891) continues nt to smoke 08/12/2024 Screening mammogram, encounter for (ICD-10 - Z12.31) 08/12/2024 Encounter for vaccination (ICD-10 - Z23) 08/12/2024 Cervical cancer screening (ICD-10 - Z12.4) 08/12/2024 HTN (hypertension) (ICD-10 - I10) Plan Of Treatment Medication Medication Name Sig Start Date Stop Date Notes Aspirin Adult Low Dose 81 MG 1 tab(s) orally once a day Brilinta 90 MG 1 tab(s) orally 2 times a day Ramipril 5 MG 1 cap(s) orally once a day Atorvastatin Calcium 40 MG 1 tab(s) orally once a day Plavix 75 MG 1 tablet Orally Once a day; Duration: 30 day(s) 08/12/2024 Treatment Notes Assessment Notes History of tobacco use disorder continue s nt to smoke Next Appt Details Follow Up: 1 Year,and prn,wi ll notify of test results, Reason: Progress Notes * WILLIAMMartha LONGaDOB:1965 (59 yo F)Acc No.[id number]:08/12/2024 Progress Notes Patient: Maru BARBOZA Provider: JD Mauricio :1965 A ge:58 Y S ex:Female Date:08/12/2024 Address:[address] [place] [address] Pcp:Ruma Prabhakar Subjective: * Chief Complaints: * 1 . Blood work and papsmear. 2. Needs labs, mammogram, low dose chest CT, & shingles vaccine. * HPI: E ndocrinology: Maintenance P t presents today for a check up with fasting labs. Pt sts that she just seen cardiology and would like her lab results shared with them. Pt sts that she does need to get a kidney function done today as well. G YN: c/o routine pap smear P t is also here to have a pap smear done today. Pt sts that she does not remember when her last pap was but does know that it was normal. Pt sts that about 30 years ago she did have to have laser treatments for cervical dysplasia. Pt sts that her last menstrual period was in 2019 or 2020. Pt sts that she has no concerns or complaints.? c/o hot flashes. Denies : abnormal vag bleeding. D enies : vaginal discharge. D enies : abdominal pain. D enies : pelvic pain. D enies : Fever. D enies : dysparaunia. D enies : breast complaints. last mense 4-5 years ago. * ROS: C ARDIOLOGY: Positive for h ad cardiac FU with them today 08/12/24; h eart meds RF by them; Brilinta disc and started on plavix. D ERMATOLOGY: no R rachael. n o H tahir. F EMALE REPRODUCTIVE: no H eavy periods. n o D ysparaunia. n o S exually active. n o F requent yeat infections. n o P elvic pain. n o B reast pain. n o N ipple discharge. n o A bnormal vaginal discharge. H ot flashes y es. G ASTROENTEROLOGY: no N ausea. n o V omiting. n o D iarrhea.? U ROLOGY: no D ifficulty urinating. n o B lood in urine. * Medical History: C AD, HISTORY OF TOBACCO USE DISORDER, Carotid artery stenosis, HTN, Hyperlipidemia. 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 H /O Sexual activity. L ast pap smear date 2 009. D enies H/O Last mammogram date 2 023. H /O Abnormal pap smear a s a teen. D ate of Last Period 1 . D enies H/O STD. B irth control B TL. * OB History: T otal pregnancies 3 . T otal living children 3 . P regnancy # 1: N .? # 2: N . P egnancy # 3 N . * Surgical History: i nfection of lymph node 1986, tubal ligation 1991, D&C, Hysteroscopy, Ablation 12/23/12, Heart Cath 09/27/18, left hip replacement 07/2019, right hip replacement . * Hospitalization/Major Diagno stic Procedure: v aginal 3 children , [facility]- D&C 12/23/12. * Family History: F ather: [...] cigarettes. Alcohol: No. * Medications: T aking Calcium 600 MG Tablet 1 tablet with meals Orally Once a day , Taking Vitamin C 1000 MG Tablet Chewable 1 tablet Orally Once a day , Taking Vitamin D3 50 MCG (2000 UT) Capsule 1 cap(s) orally once a day , Taking Aspirin Adult Low Dose 81 MG Tablet Delayed Release 1 tab(s) orally once a day , Taking Atorvastatin Calcium 40 MG Tablet 1 tab(s) orally once a day , Taking Ramipril 5 MG Capsule 1 cap(s) orally once a day , Taking Brilinta 90 MG Tablet 1 tab(s) orally 2 times a day , Not-Taking B-12 1000 MCG Tablet 1 tab(s) orally once a day , Not-Taking Triamcinolone Acetonide 0.1 % Cream APPLY TO AFFECTED AREA 3 TIMES A DAY , Not-Taking Walker DIRECTED , Notes to Pharmacist: *Please review and pick correct strength-formulation from [employer]an options. If intended option is not shown, [...] tab(s) orally once a day , Discontinued Cefdinir 300 MG Capsule 1 cap(s) Orally Two times a day , Medication List reviewed and reconciled with the patient * Allergies: N .K.D.A. Objective: * Vitals: W t:200.4, Temp:98.1, BP:120/74, HR:82, Nurse:CASSY, Ht: 63.50, BMI:34.94. * Examination: G eneral Examination: General Appearance: NAD, appears healthy, alert, pleasant. H EENT: sclera and conjunctiva clear, PERRLA, TM's normal, translucent. O ral cavity: mucosa moist and WNL, poor dentition. N zoey: supple, no lymphadenopathy, no carotid bruits, no thyromegaly. C hest: normal shape and expansion, no tenderness of chest wall. H eart: RRR, no ectopics. L ungs: CTAB A&P. A bdomen: bowel sounds present, soft and nontender, no organomegaly or masses, no guarding or rigidity, no masses palpated, not distended, no aortic bruit. N eurologic Exam: alert and oriented. E xtremities: no leg edema. G YN: External genitalia normal. U rethra: meatus normal, no stress incontinence. V agina: normal, no lesions, healthy pink mucosa without any lesions. C ervix: normal appearing; Pap obtained. U terus: normal size, shape and consistency, normal mobility, nontender. A dnexa: no masses or tenderness bilaterally.?Rectal exam: external hemorrhoids. B reasts: nipples unremarkable, no drainage, no signs of mastitis, no dimpling, no skin changes, bilateral, fibrocystic changes bilaterally, no dominate masses, symmetrical, no lymph nodes palpable. Assessment: * Assessment: 1. S /P angioplasty with stent - Z95.820 (Primary) 2 . H yperlipidemia, unspecified - E78.5 3 . C oronary artery disease involving platinum coronary artery of platinum heart without angina pectoris - I25.10 4 . S creening for thyroid disorder - Z13.29 5 . H istory of tobacco use disorder - Z87.891 6 .?Screening mammogram, encounter for - Z12.31 7 . E ncounter for vaccination - Z23 8 . C ervical cancer screening - Z12.4 9 . H TN (hypertension) - I10 Plan: * Treatment: 2. H yperlipidemia, unspecified L AB: P-Lipid Panel (Collection Date & Time - 08/12/2024 11:09 AM) N ormal Value Reference Range C holesterol / HDL Ratio 2.64 0.00-4.44 - Ratio * C holesterol 124 <200 - mg/dL * H DL Cholesterol 47 >39 - mg/dL * L DL Cholesterol (Calculation) 61 <130 - mg/d L * L DL/HDL Ratio 1.3 <3.3 - Ratio * N on-HDL Cholesterol 77 <130 - mg/dL * T riglycerides 81 <150 - mg/dL * Latisha Lloyd 08/18/2024 9 :57:51 AM > I spoke with pt and reported results 3.?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? Stop Brilinta Tablet, 90 MG, 1 tab(s), orally, 2 times a day.?LAB: P-Comprehensive Metabolic Panel (CMP) (Collection Date & Time - 08/12/2024 11:09 AM)?alk phos 137* Value Reference Range A /G Ratio 1.4 1.1-2.5 - * A lbumin 4.3 3.5-5.3 - g/dL * A lkaline Phosphatase 137 H 35-121 - IU/L * A LT (SGPT) 17 <5-47 - IU/L * A ST (SGOT) 18 <5-40 - IU/L * B ilirubin, Total 0.6 <0.2-1.2 - mg/dL * B UN 17 6-20 - mg/dL * C alcium 9.6 8.6-10.4 - mg/dL * C hloride 104 97-108 - mmol/L * C O2 27 22-32 - mmol/L * C reatinine 0.79 0.50-1.00 - mg/dL * G lucose 83 65-99 - mg/dL * P otassium 4.3 3.5-5.3 - mmol/L * S odium 143 135-145 - mmol/L * P rotein 7.3 6.0-8.3 - g/dL * e GFR by Creatinine 87 >59 - mL/min/1.73m2 * Latisha Lloyd 08/18/2024 9 :57:15 AM >I spoke with pt and reported results ?LAB: CBC Venipuncture (in house) (Collection Date & Time - 08/12/2024)? Normal* Value Reference Range w bc 7.6 3.5 - 10 * l ymph 24.8 15 - 50 * m id 5.6 2 - 15 * g ran 69.6 35 - 80 * r bc 4.98 3.5 - 5.5 * h gb 14.2 11.5 - 16.5 * h ct 43.5 35 - 55 * m cv 87.4 75 - 100 * m ch 28.5 25 - 35 * m chc 32.6 31 - 38 * p latlet 238 100 - 400 * Mercedes Holland 08/12/2024 12:51 :21 PM >Latisha Lloyd 08/18/2024 9:59:06 AM > I spoke with pt and reported results 4.?Screening for thyroid disorder?LAB: P-TSH (Collection Date & Time - 08/12/2024 11:09 AM)?Normal* Value Reference Range T SH 1.20 0.43-5.25 - mU/L * Latisha Lloyd 08/18/2024 1 0:00:19 AM > I spoke with pt and reported results 5.?History of tobacco use disorder?Imaging: CT SCAN : CHEST, LUNG CANCER SCREENING LOW DOSE (Performed Date - 09/16/2024)?Negative* Latisha Lloyd 08/12/2024 12:03:04 PM > smoked since a teenager; quit 5 years agoMago Bender 08/13/2024 4:27:48 PM > auth#[id number]; valid 08/13/2024 through 09/11/2024; CPT code 39269; faxed to [facility] Latisha Zepeda 12/11/2024 12:06:28 PM EDT >Unable to reach pt; please report to her neg results; needs to repeat in 1 year; Lou Vargas 12/16/2024 03:32:07 PM EDT > Patient informed of normal results. Notes: continues nt to smoke??6.?Screening mammogram, encounter for?Imaging: Mammogram (Performed Date - 08/20/2024)?Negative* Latisha Lloyd 08/12/2024 12:02:47 PM > Mago Hernandes 08/13/2024 9:19:31 AM > faxed to [facility] JessieLatisha Lloyd 08/25/2024 9:16:41 AM > I spoke with pt and reported results 7.?Cervical cancer screening?LAB: P-Pap Test Thin Prep (Collection Date & Time - 08/12/2024 11:09 AM)? Negative* Value Reference Range P ap Test Thin Prep Negative for Intraepithelial Lesion or Malignancy - * Latisha Lloyd 08/15/2024 3:06:07 PM > no answer when Latisha Hadley 08/18/2024 9:59:33 AM > I spoke with pt and reported results 8.?HTN (hypertension)? Continue Ramipril Capsule, 5 MG, 1 cap(s), orally, once a day.?? * Immunizations: Shingrix : 0.5 mL (Route: Intramuscular) given by Bertha Willams on Left Deltoid (Encounter for vaccination) * Labs: * L ab: HPV High Risk Screen (TMA) (Collection Date & Time - 08/12/2024 11:09 AM) N egative Value Reference Range H PV High Risk NOT DETECTED - * [facility], IT support 08/14/2024 12:15:02 : This order was created by the Interface.Latisha Lloyd 08/18/2024 10:00:48 AM > I spoke with pt and reported results * Procedure Codes: 8 5025 CBC WITH AUTO DIFF, 3074F SYST BP LT 130 MM HG, 3078F DIAST BP < 80 MM HG * Follow Up: 1 Year,and prn,will notify of test results * Images: Billing Information: * Visit Code: 18897 Preventive Care Est Pt Age 40-64. * Procedure Codes: 87189 CBC WITH AUTO DIFF. 3074F SYST BP LT 130 MM HG. 3078F DIAST BP < 80 MM HG. * Electronic signature of Jacqueline Lloyd APRN on 02/28/2025 at 07:24 AM EDT Sign off status: Pending * Provider: JATINDER MauricioP Date: 0 08/12/2024 Generated for Santi chauhan/Carlos/Abimaelitting on: 0 02/28/2025 07:24 AM EDT History and Physical Notes * HPI (History of Present Illness) Category Sub-Category Detail Notes Category Not es Endocrinology Maintenance Pt presents toda y for a check up with fasting labs. Pt sts that she just seen cardiology and would like her lab results shared with them. 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 Pt sts that she does not remember when her last pap was but does know that it was normal. Pt sts that about 30 years ago she did have to have laser treatments for cervical dysplasia. Pt sts that her last menstrual period was in 2019 or 2020. Pt sts that she has no concerns or complaints hot flashes Examination Category Sub-Category Detail Notes Category Not es General Examination HEENT: sclera and c onjunctiva clear, PERRLA, TM's normal, translucent Heart: RRR, no ectopics Lungs: CTAB A&P Abdomen: bowel sounds present , soft and nontender, no organomegaly or masses, no guarding or rigidity, no masses palpated, not distended, no aortic bruit Extremities: no leg edema General Appearance: NAD, appears healthy , alert, pleasant Neurologic Exam: alert and oriented Neck: supple, no lymphaden opathy, no carotid bruits, no thyromegaly Oral cavity: mucosa moist and WNL , poor dentition Chest: normal shape and exp ansion, no tenderness 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
--- OUTSIDE RECORDS SUMMARY | 2025-02-09 07:05 | XMS_ITS ---
Author Organization [facility]ie Address [address] [facility] [place] [address] [place] [id number] Care Team Providers Care Office Services Manager Name Role Phone Ruma Prabhakar Primary Care Provider Orquidea Shah Unavailable [phone] REASON FOR VISIT shingles booster Medications Medication SIG (Take, Route, Frequency, Duration) Notes Start Date End Date Status Plavix 75 MG 1 tablet Orally Once a day; Duration: 30 day(s) 08/12/2024 Active Aspirin Adult Low Dose 81 MG 1 tab(s) orally once a day Active Ramipril 5 MG 1 cap(s) orally once a day Active Vitamin C 1000 MG 1 tablet Orally Once a day; Duration: 30 day(s) Active Vitamin D3 50 MCG (1999 UT) 1 cap(s) ora lly once a day 08/17/2016 Active Calcium 600 MG 1 tablet with meals Orally Once a day Active Atorvastatin Calcium 40 MG 1 tab(s) oral ly once a day Active Immunizations Vaccine Route Administration Date Status Comme nts Shingrix IM Intramuscular 02/09/2025 Administered Encounters Encounter Location Date Provider Diagnosis [facility] [address] [facility] [address] [place] [id number] 02/09/2025 Orquidea Shah Encounter for immunization Z23 Assessments Encounter Date Diagnosis (ICD Code) Assessment Notes Treatment Notes Treatment Clinical Notes Section Notes 02/09/2025 Encounter for immunization (ICD-10 - Z23) Plan Of Treatment No Information Progress Notes * Sakshi GLOVERB:1965 (59 yo F)Acc No.[id number]:02/09/2025 Patient: Maru BARBOZA Provider: GERRY Araujo :1965 A ge:59 Y S ex:Female Date:02/09/2025 Address:[address] [place] [address] [place] Pcp:Ruma Prabhakar Subjective: * Chief Complaints: * 1 . Shingles booster. * Medical History: * Medications: T aking Calcium 600 MG Tablet 1 tablet with meals Orally Once a day , Taking Vitamin C 1000 MG Tablet Chewable 1 tablet Orally Once a day , Taking Vitamin D3 50 MCG (2000 UT) Capsule 1 cap(s) orally once a day , Taking Atorvastatin Calcium 40 MG Tablet 1 tab(s) orally once a day , Taking Ramipril 5 MG Capsule 1 cap(s) orally once a day , Taking Aspirin Adult Low Dose 81 MG Tablet Delayed Release 1 tab(s) orally once a day , Taking Plavix 75 MG Tablet 1 tablet Orally Once a day , Discontinued B-12 1000 MCG Tablet 1 tab(s) orally once a day , Discontinued Triamcinolone Acetonide 0.1 % Cream APPLY TO AFFECTED AREA 3 TIMES A DAY , Discontinued Walker DIRECTED , Notes to Pharmacist: *Please review and pick correct strength-formulation from [employer] options. If intended option is not shown, discontinue and re-order from Quick Search*, Discontinued COMBIVENT INHALER 2 PUFFS QID PRN , Notes to Pharmacist: *Please review for potential replacement for e-prescription and drug interaction check*, Discontinued Medrol 4 MG Tablet Therapy Pack as directed orally daily , Discontinued Promethazine-DM 6.25-15 MG/5ML Syrup 5 ml orally every 6 hours prn , Discontinued Zithromax 500 MG Tablet 1 tab(s) orally once a day , Medication List reviewed and reconciled with the patient Objective: * Vitals: Assessment: * Assessment: 1. E ncounter for immunization - Z23 (Primary) Plan: * Treatment: * Immunizations: Shingrix : 0.5 (Route: Intramuscular) given by Jacqueline Rivas on Right Deltoid (Encounter for immunization) * Images: Billing Information: * Visit Code: * Procedure Codes: * Electronic signature of GERRY Conte on 02/28/2025 at 07:23 AM EDT Sign off status: Pending * Provider: GERRY Araujo Date: 0 02/09/2025 Generated for Santi chauhan/Carlos/Abimaelitting on: 0 02/28/2025 07:23 AM EDT
--- OUTSIDE RECORDS SUMMARY | 2025-02-28 07:23 | XMS_ITS | Clinical Summary ---
Author Organization [facility] Address [address] [place] [id number] Care Team Providers Care Water Restoration Technician Name Role Phone Donovan Prabhakar MD Primary Care Provider Allergies No known active allergies Medications Multiple Vitamins-Minera ls (MULTIVITAMIN WITH MINERALS) tablet tablet Take 1 tablet by mouth Daily. Active VITAMIN D, ERGOCALCIFEROL, PO Take 2,000 Units by mouth Daily. Active B Dlahruh-E-M-Zn (B RPCSGXM-P-J-ZIN C) tablet Take 1 tablet by mouth Daily. Active EQ ASPIRIN ADULT LOW DOSE 81 MG EC tablet Take 81 mg by mouth Daily. 6 09/27/2018 Active ramipril (ALTACE) 5 MG capsule Take 5 mg by mouth Daily. 6 09/27/2018 Active atorvastatin (LIPITOR) 40 MG tablet Take 40 mg by mouth Daily. 6 09/27/2018 Active BRILINTA 90 MG tablet tablet Take 1 tablet by mouth 2 (Two) Times a Day. 60 tablet 11 07/18/2019 Active docusate sodium (Colace) 100 MG capsule Take 1 capsule by mouth 2 (Two) Times a Day. 60 capsule 01/21/2020 Active Active Problems Problem Noted Date Diagnosed Date Leukocytosis, likely reactive 07/18/2019 Acute blood loss anemia, mild, asymptomatic 06/20 Acute postoperative pain 07/18/2019 Status post total replacement of right hip 07/17 Hyperlipidemia 07/17/2019 Hypertension 07/17/2019 Coronary artery disease 07/17/2019 DJD (degenerative joint disease) 04/29/2019 Overview (04/29/2019): Added automatically from request for surgery [id number] Family History Medical History Relation Name Comments Cancer Father Diabetes Father Heart attack Father Stroke Father Asthma Mother Diabetes Mother Relation Name Status Comments Father Mother Social History Tobacco Use Types Packs/Day Years Used Date Smoking Tobacco: Former Cigarettes 0.5 30 0 10/04/1988 - 10/04/2018 Smokeless Tobacco: Never Alcohol Use Standard Drinks/Week Comments No 0 (1 standard drink = 0.6 oz pur e alcohol) AUDIT-C Answer Date Recorded Frequency of Alcohol Consumption Never 08/28/2018 Average Number of Drinks Not on file 019 Frequency of Binge Drinking Not on file 08/16 Abuse Screen Answer Date Recorded Unsafe at Home or Work/School Not on file Feels Threatened by Someone? Not on file 02/2023 Does Anyone Keep You from Co ntacting Others or Doint Things Outside the Home? Not on file 03/26/2023 Physical Sign of Abuse Present Not on file 1 Housing Stability Answer Date Recorded Current Living Arrangements Not on file 02/2023 Potentially Unsafe Housing Conditions Not on peg e 03/26/2023 Family and Community Support Answer Negrito e Recorded Help with Day-to-Day Activities Not on file 03/26/2023 Lonely or Isolated Not on file 03/26/2023 Employment Answer Date Recorded Do you want help finding or keeping work or a luiz b? Not on file 03/26/2023 Disabilities Answer Date Recorded Concentrating, Remembering, or Making Decisions Difficulty Not on file 03/26/2023 Doing Errands Independently Difficulty Not on fi le 03/26/2023 Education Answer Date Recorded Help with school or training? Not on file Preferred Language Not on file 03/26/2023 Comments No Sex and Gender Information Value Date Recorded Sex Assigned at Not on file Legal Sex Female 1:32 PM EDT Gender Identity Not on file Sexual Orientation Not on file Last Filed Vital Signs Vital Sign Reading Time Taken Comments Blood Pressure 157/89 01/21/2020 11:27 AM EDT Pulse 72 01/21/2020 7:24 AM EDT Temperature 36.6 C (97.9 F) 01/21/2020 7:24 AM EDT Respiratory Rate 16 01/21/2020 7:24 AM EDT Oxygen Saturation 99% 01/21/2020 7:24 AM EDT Inhaled Oxygen Concentration - - Weight 77.1 kg (170 lb) 01/20/2020 6:24 AM EDT Height 154.9 cm (5' 1 ) 01/20/2020 6:24 AM EDT Body Mass Index 32.12 01/20/2020 6:24 AM EDT Plan of Treatment Health Maintenance Due Date Last Done Comments Annual Gynecologic Pelvic and Breast Exam 1965 LIPID PANEL 1965 MAMMOGRAM 2006 COLOGUARD 12/30/2011 COLON CANCER SCREENING 5 YEAR SIGMOIDOSCOPY 12/30/2011 COLONOSCOPY 12/30/2011 COLORECTAL CANCER SCREENING 12/30/2011 CT COLONOGRAPHY 12/30/2011 FECAL OCCULT BLOOD TEST 12/30/2011 FIT Testing (1 year) 12/30/2011 ZOSTER VACCINE (1 of 2) 2016 ANNUAL PHYSICAL 08/28/2018 HEPATITIS C SCREENING 08/28/2018 Pneumococcal Vaccine 50+ (2 of 2 - PCV) 03/14/2020 0 03/14/2019 COVID-19 Vaccine (1 - season) 2025 INFLUENZA VACCINE 03/18/2025 TDAP/TD VACCINES (2 - Td or Tdap) 03/14/2029 019 Medical Devices Implanted Type Area Casting Sorter Device Identifier Shelf Expiration Date Model / Serial / Lot Shll Acet R3 3h Std 50mm - [id number] Implanted:Qty: 1 on 07/17/2019 by Ronni Georges MD at [facility] Implant LUTZ AND NEPHEW 09/28/2028 [id number] / / [id number] Putty Dbm Progenix 10cc - [id number] Implanted:Qty: 1 on 07/17/2019 by Ronni Georges MD at [facility] Implant [employer] A [employer] 10/22/2020 [id number] / / [id number] Scrw Sph Hd Reflection 6.5x30mm - [id number] Implanted:Qty: 1 on 07/17/2019 by Ronni Georges MD at [facility] Implant LUTZ AND NEPHEW 03/25/2029 [id number] / / [id number] Liner Acet R3 Xlpe 0d 31r52go - [id number] Implanted:Qty: 1 on 07/17/2019 by Ronni Georges MD at [facility] Implant LUTZ AND NEPHEW 03/31/2029 [id number] / / [id number] Stem Fem Synergy Porpls Lorenzo Cmtls Std Sz12 150mm - [id number] Implanted:Qty: 1 on 07/17/2019 by Ronni Georges MD at [facility] Implant L[employer] NE[employer]HEW 03/07/2029 [id number] / / [id number] Hd Fem/Hip Bioloxdelta R3 05/31 Sm 32mm Pls0 - [id number] Implanted:Qty: 1 on 07/17/2019 by Ronni Georges MD at [facility] Implant LUTZ [employer] NEPHEW 05/06/2029 [id number] / / [id number] Totl Hip Corey Lutz Nephew - [id number] Implanted:Qty: 1 on 07/17/2019 by Ronni Georges MD at [facility] Implant LUTZ [employer] NEPHEW CAPHIPTO STEVE SN2 / / Sut Contrl Tiss Stratafix Symm Pds Plus Arline Ct-1 45cm - [id number] Implanted:Qty: 1 on 01/20/2020 by Ronni Georges MD at [facility] Implant Right: Hip ETH[employer] DIV OF J AND J [id number] / / Putty Dbm Progenix 5cc - [id number] Implanted:Qty: 1 on 01/20/2020 by Ronni Georges MD at [facility] Implant Right: Hip [employer] 12/09/2020 [id number] / / [id number] Shll Acet R3 3h Std 50mm - [id number] Implanted:Qty: 1 on 01/20/2020 by Ronni Georges MD at [facility] Implant Right: Hip [employer]HEW 08/15/2029 [id number] / / [id number] Scrw Sph Hd Reflection 6.5x30mm - [id number] Implanted:Qty: 1 on 01/20/2020 by Ronni Georges MD at [facility] Implant Right: Hip [employer]HEW 08/15/2029 [id number] / / [id number] Liner Acet R3 Xlpe 0d 04c45ry - [id number] Implanted:Qty: 1 on 01/20/2020 by Ronni Georges MD at [facility] Implant Right: Hip [employer]W 08/23/2029 [id number] / / [id number] Hd Fem/Hip Bioloxdelta R3 05/31 Sm 32mm Pls0 - [id number] Implanted:Qty: 1 on 01/20/2020 by Ronni Georges MD at [facility] Implant Right: Hip [employer]HEW 09/07/2029 [id number] / / [id number] Stem Fem Synergy Porpls Lorenzo Cmtls Std Sz12 150mm - [id number] Implanted:Qty: 1 on 01/20/2020 by Ronni Georges MD at [facility] Implant Right: Hip L[employer]W 08/12/2029 [id number] / / [id number] Totl Hip Corey Lutz Nephew - [id number] Implanted:Qty: 1 on 01/20/2020 by Ronni Georges MD at [facility] Implant Right: Hip LUTZ AND NEPHEW CAPHIPTOTAL SN2 / / Sut Contrl Tiss Stratafix Spiral Mncryl Ud 3/0 Pls 60cm - [id number] Implanted:Qty: 1 on 01/20/2020 by Ronni Georges MD at [facility] Implant Right: Hip [employer] DIV OF J AND J [id number] / / Stent Stent Insurance PPO Member Subscriber Plan / Payer (Ef fective 2017-Present) Name:Maru Glover Relation to Subscriber:Spouse Name:FABIO GLOVER Date of :1966 Address: [address] [place] [address] Payer ID:[id number] (NAIC) Type:Not on file Address: [facility] [id number] [place] [id number] Advance Directives * CPR (Attempt to Resuscitate) (Latest Code Status on File) Date Activated Date Inactivated Comments 01/20/2020 10:29 AM 01/21/2020 3:00 PM Question Answer Comments Code Status (Patient has no pulse and is not breathing): CPR (Attempt to Resuscitate) Medical Interventions (Patie nt has pulse or is breathing): Full * CPR (Attempt to Resuscitate) Date Activated Date Inactivated Comments 07/17/2019 11:35 AM 07/18/2019 3:17 PM Question Answer Comments Code Status (Patient has no pulse and is not breathing): CPR (Attempt to Resuscitate) Medical Interventions (Patie nt has pulse or is breathing): Full Care Teams Water Restoration Technician Relationship Specialty Start Date End Date Donovan Prabhakar MD [facility] [address] [facility] [address] [place] [address] PCP - General Family Medicine 08/04/19
--- OUTSIDE RECORDS SUMMARY | 2025-02-28 07:24 | XMS_ITS | Patient Health Record ---
Author Organization [facility] Address [address] [facility] [address] [place] [id number] Care Team Providers Care Book Store Associate Name Role Phone Ruma Prabhakar Primary Care Provider Latisha Lloyd Unavailable [phone] LloydOrquidea jimenez Unavailable [phone] Allergies No Known Allergies Results Component Value [...] and other clinical and laboratory findings. See [email or web address] d f for further information. Test performed by [facility] d/b/a [address] , [address], [place] [address], Lincoln Wylie DO, Accounts Payable Specialist, CLIA# [id number] P-Pap Test Thin Prep Reviewed date:08/18/2024 09:59:47 [...] imaging, the slide was reviewed by a Straightening Press Operator Helper and/or Pathologist. Cervical cytology is a screening test primarily for squamous cancers and precursors and has associated false-negative and false-positive results. New technologies such as liquid-based preparations may decrease but will not eliminate all false-negative results. Regular sampling and follow-up of unexplained clinical signs and symptoms are recommended to minimize false negative results. End of Report Technical services provided by [facility], d/b/a [address] , [place] [address] Venu Raza MD, Accounts Payable Specialist. Case reviewed and diagnosis rendered at [facility], d/b/a [address] , [place] [address] Venu Raza MD, Accounts Payable Specialist. CONFIDENTIAL P-Comprehensive Metabolic Pa real (CMP) Reviewed date:08/18/2024 10:00:11 AM Interpretation:alk phos 137 Performing Lab: Notes/Report: Test performed by [facility] [address] [place] [address] , [address], [place] [address] Wilbert Caraballo MD, Accounts Payable Specialist CLIA: [id number] Sodium 143 135-145 mmol/L Potassium 4.3 3.5-5.3 [...] Interpretation:Normal Performing Lab: Notes/Report: Test performed by [facility], [address] , [address], [place] [address] Wilbert Caraballo MD, Accounts Payable Specialist CLIA: [id number] Cholesterol 124 <200 mg/dL Triglycerides 81 <150 [...] Interpretation:Normal Performing Lab: Notes/Report: Test performed by [facility], [address] , [place] [address] Wilbert Caraballo MD, Accounts Payable Specialist CLIA: [id number] TSH 1.20 0.43-5.25 mU/L Mammogram Reviewed date:08/25/2024 09:17:46 AM Interpretation:Negative Performing Lab: Notes/Report: Negative CT SCAN : CHEST, LUNG CANCER SCREENING LOW DOSE Reviewed date:12/16/2024 03:32:16 PM Interpretation:Negative Performing Lab: Notes/Report: Negative CT SCAN : CHEST, LUNG CANCER SCREENING LOW DOSE Reviewed date:10/09/2024 02:04:18 PM Interpretation:Normal, Annual F/U Performing Lab: Notes/Report: Normal, Annual F/U Reason For Referral No Information Medications Medication SIG (Take, Route, Frequency, Duration) Notes Start Date End Date Status Vitamin C 1000 MG 1 tablet Orally Once a day; Duration: 30 day(s) Active Vitamin D3 50 MCG (2000 UT) 1 cap(s) ora lly once a day 08/17/2016 Active Calcium 600 MG 1 tablet with meals Orally Once a day Active Plavix 75 MG 1 tablet Orally Once a day; Duration: 30 day(s) 08/12/2024 Active Aspirin Adult Low Dose 81 MG 1 tab(s) orally once a day Active Atorvastatin Calcium 40 MG 1 tab(s) oral ly once a day Active Ramipril 5 MG 1 cap(s) orally once a day Active Immunizations Vaccine Route Administration Date Status Comme nts xFlu shot-36 months and older IM Intramuscular 04/02/2010 Administered Tetanus Tdap-Adacel (over 7yrs) IM Intramuscular 04/14/2009 Administered Tetanus Tdap-Adacel (over 7yrs) IM Intramuscular 01/13/2019 Pending Tetanus Tdap-Adacel (over 7yrs) IM Intramuscular 03/14/2019 Administered Shingrix IM Intramuscular 08/12/2024 Administered Shingrix IM Intramuscular 02/09/2025 Administered PNEUMOVAX 23 VACCINE IM Intramuscular 04/02/2010 Administe red PNEUMOVAX 23 VACCINE IM Intramuscular 01/13/2019 Pending PNEUMOVAX 23 VACCINE IM Intramuscular 03/14/2019 Administe red Fluzone Quad (6months&older) IM Intramuscular 04/30/2019 Administered Problems Problem Type SNOMED Code ICD Code Onset Dates Problem Status W/U Status Risk Notes Problem Hypertension (61517676) HTN (hypertension) (I10) Active confirmed Problem Vitamin D deficiency (33217366) Vitamin D deficiency (E55.9) Active confirmed Problem Abnormal mammogram (236517636) Abnormal mammogram (R92.8) Active confirmed Problem Hyperlipidemia (36245601) Hyperlipidemia, unspecified (E78.5) Active confirmed Problem Chronic pain (31915723) Other chronic pain (G89.29) Active confirmed Problem Chronic pain syndrome (093828699) Chronic pain syndrome (G89.4) Active confirmed Problem Atherosclerotic heart disease of ewiiaapaayp coronary artery without angina pectoris (081107930327190) Coronary artery disease involving ewiiaapaayp coronary artery of ewiiaapaayp heart without angina pectoris (I25.10) Active confirmed Problem History of prosthetic arthroplasty of left hip (7535383095932722) Status post left hip replacement (Z96.642) Active confirmed Problem Occlusion and stenosis of multiple and bilateral cerebral arteries (224533688) Bilateral carotid artery stenosis (I65.23) Active confirmed Problem Localized, primary osteoarthritis of the pelvic region and thigh (567097592) Primary osteoarthritis of both hips (M16.0) Active confirmed Problem History of placement of stent for coronary artery disease (situation) (870140742) Hx of heart artery stent (Z95.5) Active confirmed Problem Arthritis of hip (61907603) Hip arthritis (M16.10) Active confirmed Problem S/P angioplasty with stent (Z95.820) Active confirmed Vital Signs Heart Rate 82 /min 08/12/2024 Blood pressure diastolic 74 mm Hg 08/12/2024 Height 63.50 in 08/12/2024 Blood pressure systolic 120 mm Hg 08/12/2024 Weight 200.4 lbs 08/12/2024 BMI 34.94 kg/m2 08/12/2024 Encounters Encounter Location Date Provider [facility] [address] [place] [id number] 08/12/2024 Latisha Lloyd S/P angioplasty with stent Z95.820 ; Hyperlipidemia, unspecified E78.5 ; Coronary artery disease involving ewiiaapaayp coronary artery of ewiiaapaayp heart without angina pectoris I25.10 ; Screening for thyroid disorder Z13.29 ; History of tobacco use disorder Z87.891 ; Screening mammogram, encounter for Z12.31 ; Encounter for vaccination Z23 ; Cervical cancer screening Z12.4 and HTN (hypertension) I10 [facility] [address] [place] [phone] 02/09/2025 Orquidea Shah Encounter for immunization Z23 Assessments Encounter Date Diagnosis (ICD Code) Assessment Notes Treatment Notes Treatment Clinical Notes Section Notes 02/09/2025 Encounter for immunization (ICD-10 - Z23) 08/12/2024 Hyperlipidemia, unspecified (ICD-10 - E78.5) 08/12/2024 S/P angioplasty with stent (ICD-10 - Z95.820) 08/12/2024 Coronary artery disease involving ewiiaapaayp coronary artery of ewiiaapaayp heart without angina pectoris (ICD-10 - I25.10) 08/12/2024 Screening for thyroid disorder (ICD-10 - Z13.29) 08/12/2024 History of tobacco use disorder (ICD-10 - Z87.891) continues nt to smoke 08/12/2024 Screening mammogram, encounter for (ICD-10 - Z12.31) 08/12/2024 Encounter for vaccination (ICD-10 - Z23) 08/12/2024 Cervical cancer screening (ICD-10 - Z12.4) 08/12/2024 HTN (hypertension) (ICD-10 - I10) Plan Of Treatment No Information Insurance Providers Payer Name Payer Address Payer Phone Subscriber Number Group Number Insured Name Patient Relationship to Insured Coverage Start Date Coverage End Date [facility] [facility] [address] [place] [address] [phone] [id number] BelenMaru Self - patient is the insured Medications Administered Medication Instructions Date of Administration Dosage Notes Dexamethasone 01/07/2019 1 mL Dexamethasone 04/30/2019 1 mL Medical (General) History Medical History History ICD Code CAD HISTORY OF TOBACCO USE DISORDER Carotid artery stenosis HTN Hyperlipidemia Surgical History Surgery Date(Month/Year) infection of lymph node 1986 tubal ligation 1991 D&C, Hysteroscopy, Ablation 12/23/12 Heart Cath 09/27/18 left hip replacement 07/2019 right hip replacement Hospitalization History Reason Date(Month/Year) vaginal 3 children [facility]- D&C 12/23/12
[2025-02-28 08:08] LABS: Hematocrit 41.3 % (37.0-47.0); Hemoglobin 13.4 g/dL (12.2-16.2); Immature Granulocytes % 0.1 %; Mean Corpuscular HGB Conc 32.4 g/dL (31.8-35.4); Mean Corpuscular Hemoglobin 29.1 pg (27.0-31.2); Mean Corpuscular Volume 89.6 fl (81-99); Nucleated Red Blood Cells % 0 %; Platelet Count 246 K/mm3 (142-424); Red Blood Count 4.61 M/mm3 (4.20-5.40); Red Cell Distribution Width-SD 45.5 fL; White Blood Count 7.9 K/mm3 (4.8-10.8)
[2025-02-28 08:28] LABS: Free T4 (Free Thyroxine) 1.44 ng/dl (0.78-2.19)
[2025-02-28 08:58] LABS: Albumin Level 4.2 g/dl (3.5-5.0)
[2025-02-28 08:59] LABS: Chloride 104 mmol/L (98-107); Potassium 4.5 mmoL/L (3.5-5.1); Sodium 141 mmol/L (136-145)
[2025-02-28 09:01] LABS: Alanine Aminotransferase 22 U/L (12-78); Anion Gap 12.5 mEq/L (5-15); Aspartate Amino Transferase 35 U/L (14-36); Bilirubin,Unconjugated 0.6 mg/dL (0.0-1.1); Blood Urea Nitrogen 16 mg/dl (7-17); Carbon Dioxide 29 mmol/L (22.0-30.0); Creatinine,Serum 0.70 mg/dl (0.52-1.04); Estimated Glomerular Filt Rate 86 ml/min (>60); GFR (African American) 104 ML/MIN (>60); Total Protein,Serum 7.1 g/dl (6.3-8.2)
[2025-02-28 09:02] LABS: Alkaline Phosphatase 104 U/L (38-126); Bilirubin,Direct 0.0 mg/dl (0.0-0.4); Bilirubin,Indirect 0.6 mg/dL (0.0-0.9); Bilirubin,Total 0.6 mg/dl (0.2-1.3); Calcium 9.4 mg/dl (8.4-10.2); Cholesterol 135 mg/dl (140-200); Glucose 95 mg/dl (74-100); HDL Cholesterol 49 mg/dl (40-60); Magnesium 1.8 mg/dl (1.6-2.3); Triglycerides 80 mg/dl (30-150)
[2025-02-28 09:32] LABS: Thyroid Stimulating Hormone 1.24 uIU/mL (0.465-4.68)
== END 2025-02-28 23:59 | disposition home or self-care (01) ==
LOC: LAB 07:22
PROVIDERS: PCP Family Medicine; Visit Provider Physician Assistant
DX: I25.10 Atherosclerotic heart disease of native coronary artery without angina pectoris (principal); I10 Essential (primary) hypertension
CPT/HCPCS: 36415; 80048; 80061; 80076; 83735; 84439; 84443; 85025